=== PATIENT | male | born 1965 | race Hispanic/Latino ===

== ENCOUNTER 2018-05-15 23:21 | Emergency (ER) | payer OTHER ==
[2018-05-16 00:02] LABS: BASOPHILS % (AUTO) 0.3 % (0.0-5.0); LYMPHOCYTES % (AUTO) 9.9 % (21.0-51.0); MEAN CORPUSCULAR HGB CONC 34.6 g/dL (32.0-36.0); MEAN CORPUSCULAR VOLUME 89.7 fL (79-99); MONOCYTES % (AUTO) 4.5 % (3.0-13.0); NEUTROPHILS % (AUTO) 84.3 % (40.0-77.0); PLATELET COUNT (AUTO) 184 K/uL (130-400); RED BLOOD CELL COUNT(AUTO) 4.79 MIL/uL (4.50-6.20); WHITE BLOOD COUNT (AUTO) 9.8 K/uL (4.8-10.8)
[2018-05-16 00:11] LABS: APPEARANCE,URINE Clear (CLEAR); BILIRUBIN,URINE Negative (NEGATIVE); COLOR,URINE Yellow (YELLOW); GLUCOSE, URINE (UA) Negative (NEGATIVE); KETONES,URINE Negative (NEGATIVE); LEUKOCYTE ESTERASE ,URINE Negative (NEGATIVE); NITRATE,URINE Negative (NEGATIVE); OCCULT BLOOD,URINE Negative (NEGATIVE); PH,URINE 5.5 (5.0-8.0); PROTEIN,URINE Negative (NEGATIVE); UROBILINOGEN,URINE 0.2 mg/dL (0.2-1.0)
[2018-05-16] MEDS ORDERED: KETOROLAC TROMETHAMINE 30MG/ML ONE (00:20)
[2018-05-16 00:22] LABS: CREATININE 0.8 mg/dL (0.5-1.5); POTASSIUM 3.8 mmol/L (3.5-5.1)
[2018-05-16 00:27] LABS: ALBUMIN 3.8 g/dL (3.5-5.0); BILIRUBIN,TOTAL 0.7 mg/dL (0.2-1.0); TOTAL PROTEIN, SERUM 7.2 g/dL (6.0-8.3)
[2018-05-16] MEDS ORDERED: IOHEXOL-350 75 ML VIAL IV ONE (00:54)
== END 2018-05-16 02:04 | disposition home or self-care (01) ==
LOC: EDH 23:21
DX: R10.10 Upper abdominal pain, unspecified (principal); R19.7 Diarrhea, unspecified; Z72.0 Tobacco use
CPT/HCPCS: 36415; 74177; 76705; 80053; 81003; 83690; 85025; 96361; 96374; 99284; J1885; Q9967

== ENCOUNTER 2019-08-02 00:17 | Emergency (ER) | payer SELFPAY | END 2019-08-02 01:38 | disposition home or self-care (01) | LOC: EDH 00:17 | DX: S82.892A Other fracture of left lower leg, initial encounter for closed fracture (principal); X58.XXXA Exposure to other specified factors, initial encounter; Y93.89 Activity, other specified; Y92.89 Other specified places as the place of occurrence of the external cause; Y99.8 Other external cause status | CPT/HCPCS: 29515; 73610 ==